=== PATIENT | female | born 1955 | race Caucasian/White ===

== ENCOUNTER 2023-01-09 16:55 | Emergency (ER) | payer OTHER ==
[~2023-01-09] VITALS: Ht 157.5 cm; Wt 59.1 kg
[~2023-01-09 16:55] MED LIST: ATOR40TA PO; LOP25T PO; METF-1203 PO
[2023-01-09 18:21] VITALS: BP 155/77
[2023-01-09] MEDS ORDERED: IBUP-1986 PO (20:31)
[2023-01-09] MEDS ORDERED: CYCL-1 PO (20:31)
[2023-01-09] MEDS ORDERED: ketorolac trometh inj. 60 MG/2 ML VIAL IM ONE (21:15)
[2023-01-09] MEDS ORDERED: cyclobenzaprine 10mg tablet PO ONE (21:15)
== END 2023-01-09 21:39 | disposition home or self-care (01) ==
LOC: ER 16:56
DX: S20.312A Abrasion of left front wall of thorax, initial encounter (principal); M79.10 Myalgia, unspecified site; V89.2XXA Person injured in unspecified motor-vehicle accident, traffic, initial encounter; Y93.89 Activity, other specified; Y92.89 Other specified places as the place of occurrence of the external cause; Y99.8 Other external cause status
CPT/HCPCS: 71250; 74176; 96372; 99285; J1885